=== PATIENT | female | born 1965 | race Caucasian/White ===

== ENCOUNTER 2016-07-13 06:02 | Emergency (ER) | payer BC ==
[~2016-07-13] VITALS: Ht 157.5 cm; Wt 103.4 kg
[2016-07-13 06:27] LABS: URINE BILIRUBIN NEGATIVE (Negative); URINE BLOOD TRACE (Negative); URINE COLOR YELLOW; URINE GLUCOSE-RANDOM* NEGATIVE (Negative); URINE KETONES NEGATIVE (Negative); URINE NITRITE NEGATIVE (Negative); URINE PROTEIN (DIPSTICK) NEGATIVE (Negative); URINE UROBILINOGEN 0.2 E.U./dl (0.2-1.0)
[2016-07-13 07:03] LABS: AMP/METHAMP Negative (Negative); BARBITURATES Negative (Negative); BENZODIAZEPINES Negative (Negative); COCAINE Negative (Negative); METHADONE Negative (Negative); OPIATES POSITIVE (Negative); PCP Negative (Negative); THC Negative (Negative)
[2016-07-13] MEDS ORDERED: ATIVAN1 MG PO (07:12)
[2016-07-13 07:38] VITALS: BP 132/56
== END 2016-07-13 07:40 | disposition home or self-care (01) ==
LOC: ER 06:02
PROVIDERS: Emergency Medicine
DX: F41.9 Anxiety disorder, unspecified (principal); T38.0X5A Adverse effect of glucocorticoids and synthetic analogues, initial encounter; Y92.9 Unspecified place or not applicable